=== PATIENT | female | born 1960 | race Caucasian/White ===

== ENCOUNTER 2017-02-06 08:45 | Day surgery (SDC) | payer MEDICAID ==
[~2017-02-06] VITALS: Ht 172.7 cm; Wt 97.7 kg
[2017-02-06 09:45] VITALS: Ht 172.7 cm; Wt 97.7 kg
[2017-02-06] MEDS ORDERED: SYNTHROID PO (09:50)
[2017-02-06] MEDS ORDERED: CHOLESTEROL MED PO (09:50)
[2017-02-06] MEDS ORDERED: FENTAnyl 50 MCG/ML VIAL ONE (10:44)
[2017-02-06] MEDS ORDERED: MIDAZOLAM 1 MG/ML 2 ML INJ ONE ×2 (10:45)
[2017-02-06 11:00] VITALS: BP 121/74; PULSE 74; RESP 18
--- NOTE | 2017-02-06 11:00 | GILP ---
DATE OF PROCEDURE: 02/06/2017 NAME OF PROCEDURE: Colonoscopy and biopsy. PREOPERATIVE DIAGNOSIS: Screening colonoscopy to rule out colon polyps. POSTOPERATIVE DIAGNOSES: A 3 mm flat polyp was noted in the distal transverse colon. This was vishal cas with a cold biopsy forcep. The polyp was not bleeding and did not appear malignant. Moderate d egree of diverticulosis noted with no bleeding. Minimal external hemorrhoids were noted. DESCRIPTION OF PROCEDURE: After informed written consent was obtained, the patient was asked to lie on the left lateral side, 3 mg Versed and 50 mcg of fentanyl was given as intravenous anesthesia. When the patient became somnolent, the Olympus video colonoscope was introduced into the rectum and scope was advanced all the way to the cecum. A 3 mm flat polyp was noted in the distal transverse colon. This appeared benign, is not pedunculat ed, no bleeding noted. Biopsies were done and biopsied polyp was removed. Rest of the colon appear ed normal except a moderate to severe degree of diverticulosis which is not bleeding. On the way ou t, minimal external hemorrhoids were noted. PLAN: Recommend wait for the pathology report and recommend colonoscopy in 5 years. Dictated By: CHAIM KAPADIA/NTS Conf#: [id number] DID#: [id number] CC: CHAIM HOBBS MD; SHASHI ARREGUIN MD;*EndCC*
== END 2017-02-06 14:19 | disposition home or self-care (01) ==
LOC: GIL 08:45 → EDBD 11:00 → GIL 14:19
PROVIDERS: ATTEND Internal Medicine Gastroenterology
DX: Z12.11 Encounter for screening for malignant neoplasm of colon (principal); D12.3 Benign neoplasm of transverse colon
CPT/HCPCS: 45380; 88305; J2250; J3010; Z7610